=== PATIENT | male | born 1940 | race Caucasian/White ===

== ENCOUNTER → 2017-02-26 | Outpatient (CLI) | payer OTHER, MEDICARE | LOC: FIMAGING 15:59 | PROVIDERS: ATTEND Family Medicine | DX: R91.8 Other nonspecific abnormal finding of lung field (principal); J44.9 Chronic obstructive pulmonary disease, unspecified; R07.9 Chest pain, unspecified; R94.31 Abnormal electrocardiogram [ECG] [EKG] ==

== ENCOUNTER → 2018-07-08 | Outpatient (CLI) | payer OTHER, MEDICARE | LOC: BHFA 13:30 | PROVIDERS: ATTEND Internal Medicine Cardiovascular Disease | DX: I63.9 Cerebral infarction, unspecified (principal); I77.9 Disorder of arteries and arterioles, unspecified; Q25.3 Supravalvular aortic stenosis; E88.81 Metabolic syndrome and other insulin resistance; G45.9 Transient cerebral ischemic attack, unspecified ==

== ENCOUNTER 2018-07-21 12:03 | Day surgery (SDC) | payer OTHER, MEDICARE ==
[2018-07-21] MEDS ORDERED: LIDOCAINE 1% 300 MG/30 ML SDV SC ONE (12:07)
[2018-07-21] MEDS ORDERED: LIDOCAINE 1% 300 MG/30 ML SDV ONE (13:31)
--- NOTE | 2018-07-21 13:39 | PDHPUP ---
History & Physical Update H&P update statement: This history and physical update is based on an assessment of the patient which was completed after admission or registration (within 24 hours), but prior to the surgery/procedure. H&P update: H&P reviewed & patient examined, no change in patient's condition since H&P completed (see office note 07/08/2018)
--- NOTE | 2018-07-21 18:27 | CPIP ---
DATE OF PROCEDURE: 07/21/2018 PROCEDURE: LINQ insertion. INDICATIONS: Cryptogenic stroke. Rule out paroxysmal atrial fibrillation. COMPLICATIONS: None. DESCRIPTION OF PROCEDURE: Informed consent was obtained. The patient was prepped and draped in ster ile fashion. 1% lidocaine was used for local anesthesia over the left parasternal region. Using sta ndard technique, a [employer] LINQ device was inserted. The incision was closed with 2 clare. Ster ile dressing applied. CONCLUSIONS: 1. Successful LINQ insertion, serial #[id number]. 2. Interrogation pending. 3. Follow up in the office in 1 week for staple removal. /[id number]/MODL
== END 2018-07-21 14:50 | disposition home or self-care (01) ==
LOC: FCATH 12:03
PROVIDERS: ATTEND Internal Medicine Cardiovascular Disease
PROC: 0JH632Z Insertion of Monitoring Device into Chest Subcutaneous Tissue and Fascia, Percutaneous Approach (ICD-10-PCS; principal; 2018-07-21)
DX: R00.2 Palpitations (principal); Z86.73 Personal history of transient ischemic attack (TIA), and cerebral infarction without residual deficits; E66.09 Other obesity due to excess calories; Z85.810 Personal history of malignant neoplasm of tongue
CPT/HCPCS: C1764

== ENCOUNTER → 2019-02-25 | Outpatient (CLI) | payer OTHER, MEDICARE | LOC: FIMAGING 14:28 | PROVIDERS: ATTEND Family Medicine | DX: M17.12 Unilateral primary osteoarthritis, left knee (principal) ==